=== PATIENT | female | born 2000 | race Two or more races ===

== ENCOUNTER 2020-10-28 17:55 | Emergency (ER) | payer SELFPAY ==
[~2020-10-28] VITALS: Ht 152.4 cm; Wt 86.0 kg
[2020-10-28 18:28] LABS: BILIRUBIN,URINE SMALL (NEG); CLARITY,URINE CLOUDY; COLOR,URINE AMBER; NITRITE,URINE NEGATIVE (NEG); PH,URINE 5.5 (<5.0-8.0); PROTEIN,URINE NEGATIVE (NEG-TRACE)
[2020-10-28 18:38] LABS: BACTERIA,URINE MANY /HPF (0-FEW); RBC,URINE >40 /HPF (0-2); WBC,URINE 0 /HPF (0-4)
--- NOTE | 2020-10-28 22:37 | ED.ADGEN ---
Past Medical History Past Medical History: No Pertinent History Past Surgical History: No Surgical History Smoking Status: Never Smoker Alcohol Use: Occasionally General Adult EDM: Chief Complaint: VAGINAL BLEEDING HPI: HPI: Patient is a at 6 weeks gestation who presents to the Emergency Room complaining of lower abdominal cramping and vaginal bleeding. She has had intermittent lower abdominal cramping for the last couple weeks. She started having bleeding at 2:00 this afternoon. This initially started with spotting and then she had a large amount of bleeding. She has not had any bleeding prior to this. She has not had an ultrasound yet of this . Patient was at work when bleeding initially started. She denies any trauma. Review of Systems: Review of Systems: Complete ROS is negative unless otherwise documented in HPI Allergies: Allergies: Allergies Coded Allergies Type Severity Reaction Last Updated Verified No Known Drug Allergies 10/28/20 No Physical Exam: PE: General: Awake, alert, NAD. Well Nourished, well hydrated. Cooperative HEENT: Atraumatic, EOMI, PERRL, airway patent, moist oral mucosa Neck: Supple, trachea midline Respiratory: CTA bilaterally, normal effort, no wheezing/crackles CV: RRR, no murmur, cap refill <2 GI: Soft, nondistended, nontender, no masses MSK: No obvious deformities Skin: Warm, dry, intact Neuro: A&O x3, speech NL, sensory and motor grossly intact, no focal deficits Psych: Normal affect, normal mood, not suicidal or homicidal Current Patient Data: Labs: Laboratory Tests Test 10/28/20 18:00 10/28/20 19:00 Urine Collection Type Unknown Urine Color Christa Urine Clarity Cloudy Urine pH 5.5 (<5.0-8.0) Urine Specific [place] >=1.030 (1.000-1.030) Urine Protein Negative mg/dL (NEG-TRACE) Urine Glucose (UA) Negative mg/dL (NEG) Urine Ketones (Stick) Negative mg/dL (NEG) Urine Blood Large (NEG) Urine Nitrite Negative (NEG) Urine Bilirubin Small (NEG) Urine Urobilinogen Dipstick 2.0 mg/dL (0.2 mg/dL) Urine Leukocyte Esterase Negative (NEG) Urine RBC >40 /HPF (0-2) Urine WBC 0 /HPF (0-4) Urine Squamous Epithelial Cells Many /LPF Urine Bacteria Many /HPF (0-FEW) Urine Mucus Marked /LPF Maternal Serum HCG Beta Subunit 291 mIU/mL (0-5) H Vital Signs: Vital Signs Date Time Temp Pulse Resp B/P (MAP) Pulse Ox O2 Delivery O2 Flow Rate FiO2 10/28/20 21:44 76 100/51 (67) 100 Room Air 10/28/20 18:18 98.1 12 98.1 EKG: EKG: [] Heart Score: C/O Chest Pain: N/A Risk Factors: Risk Factors: DM, Current or recent (<one month) smoker, HTN, HLP, family history of CAD, obesity. Risk Scores: Score 0 - 3: 2.5% MACE over next 6 weeks - Discharge Home Score 4 - 6: 20.3% MACE over next 6 weeks - Admit for Clinical Observation Score 7 - 10: 72.7% MACE over next 6 weeks - Early Invasive Strategies Radiology/Procedures: Radiology/Procedures: [] Course & Med Decision Making: Course & Med Decision Making Pertinent Labs and Imaging studies reviewed. (See chart for details) Patient is a 20 year-old G 1 P 0 who presents to the Emergency Room with vaginal bleeding and lower abdominal pain. Patient has not seen passage of tissue. She has not had a formal ultrasound and does not have a confirmed IUP. UA, Rh type, OB ultrasound, test were ordered. At this time, ultrasound shows gestational sac. Patient does not need rhogam. I have discussed with the patient that they are likely have a threatened . We have discussed early on in we are unable to prevent miscarriages. We will discussed pelvic rest until she follows up with OBGYN. She will return to the Emergency Room if she has a large amount of bleeding, syncope, SOB. Patient's test results and vitals while in the ED were fully reviewed and discussed with the patient. Patient is stable and at this time does not need admission to the hospital. We have discussed strict return precautions and the importance of following up with their Primary Care Physician. Patient stated understanding and was given an opportunity to ask any questions. Dragon Disclaimer: Dragon Disclaimer: This electronic medical record was generated, in whole or in part, using a voice recognition dictation system. Departure Departure Impression: Primary Impression: Threatened Disposition: HOME / SELF CARE / HOMELESS Condition: STABLE Referrals: NO PCP (PCP) Patient Instructions: Threatened Miscarriage Additional Instructions: Follow up with OB early this week for repeat testing KYLE JUAREZ MD October 28, 2020 22:37
--- NOTE | 2020-10-28 23:12 | RAD ---
OB ultrasound less than 14 weeks and transvaginal OB ultrasound HISTORY: and bleeding Sonographic examination of the was performed by transabdominal and endovaginal technique. M maxine static images were obtained. OB ultrasound less than 14 weeks transabdominal: There is a 2.4 x 2.4 x 3.3 centers cyst in the left ovary. The right ovary appears normal measures 2. 6 x 2.3 x 2.8 cm. Transvaginal OB ultrasound: There is a small fluid collection in the endometrium which could be gestational sac. The right ovary appears normal normal blood flow. Left ovary has normal blood flow. Mean sac diameter of 4.7 mm would correspond to 5 week 2 day gestational age. This would correspond w ith a estimated date confinement of June 28, 2021. LMP of 09/19/2019 corresponds with 5 week 5 day gestational age and estimated confinement of June 25, 2021. There is no yolk sac or pole. IMPRESSION: Possible early intrauterine. Recommend correlation with serial quantitative beta hCG. If the pregnanc y continues a short-term follow-up ultrasound is recommended in order to document a live intrauterine . A structural survey would be performed at 18-21 weeks gestational age. Electronically signed by: Ross Sanchez III, MD (10/28/2020 11:09 PM) [facility]
[2020-10-28 23:14] VITALS: BP 118/57
== END 2020-10-28 23:35 | disposition home or self-care (01) ==
LOC: ER 17:55
DX: O20.0 Threatened abortion (principal); Z3A.14 14 weeks gestation of pregnancy
CPT/HCPCS: 36415; 76801; 76817; 81001; 84702; 86850; 86900; 86901; 99285-25